=== PATIENT | female | born 1940 | race Caucasian/White ===

== ENCOUNTER 2017-11-13 16:04 | Outpatient (CLI) | payer MEDICARE | END 2017-11-13 16:05 | disposition home or self-care (01) | LOC: MADLAB 16:04 | PROVIDERS: ATTEND Orthopaedic Surgery Sports Medicine | DX: N18.9 Chronic kidney disease, unspecified (principal); D63.1 Anemia in chronic kidney disease | CPT/HCPCS: 82274 ==